=== PATIENT | female | born 2000 | race Two or more races ===

== ENCOUNTER 2024-10-31 21:59 | Emergency (ER) | payer OTHER ==
[2024-10-31 22:24] VITALS: RESP 18; BMI 25.8
[2024-10-31] MEDS ORDERED: ACETAMINOPHEN 325 MG TABLET (FP) ONE (23:29)
[2024-10-31] MEDS ORDERED: MAG HYDROX/AL HYDROX/SIMETH 30 ML UNIT-DOSE CUP ONE (23:30)
[2024-10-31] MEDS: ACETAMINOPHEN 325 MG TABLET (FP) PO ONE (23:38)
[2024-10-31] MEDS: MAG HYDROX/AL HYDROX/SIMETH 30 ML UNIT-DOSE CUP PO ONE (23:38)
[2024-11-01 00:05] LABS: EPI CELLS 22 /uL (0-25.1); HYALINE CASTS 0 /uL (0-3.1); URINE APPEARANCE CLEAR; URINE BACTERIA 408 /uL (0-1359); URINE BILIRUBIN NEGATIVE (NEGATIVE); URINE COLOR YELLOW; URINE GLUCOSE (UA) NEGATIVE (NEGATIVE); URINE KETONE NEGATIVE (NEGATIVE); URINE LEUK ESTERASE 1+ (NEGATIVE); URINE NITRITE NEGATIVE (NEGATIVE); URINE PROTEIN NEGATIVE (NEGATIVE); URINE RBC 6 /uL (0-23.9); URINE UROBILINOGEN 0.2 mg/dL (0.2-1.0); URINE WBC 32 /uL (0-25.8)
[2024-11-01] MEDS ORDERED: AMOX TR/POT CLAV 875MG/125MG TABLETS (FP) ONE (00:48)
[2024-11-01 00:49] LABS: EOSINOPHIL % 0.5 % (0.7-5.8); EOSINOPHILS # 0.04 x10^3/uL (0.04-0.36); RDW 14.0 % (12.1-16.5)
[2024-11-01 00:50] LABS: ABSOLUTE IMMATURE GRANULOCYTES 0.02 x10^3/uL (0.0-0.031); BASOPHILS # 0.04 x10^3/uL (0.01-0.08); IMMATURE PLATELET FRACTION # 9.20 x10^3/uL; MCHC 32.5 g/dl (32.2-35.5); MEAN CELL VOLUME 82.8 fl (79.4-94.8); MEAN PLT VOLUME 9.9 fl (9.4-12.3); MONOCYTE # 0.71 x10^3/uL (0.24-0.86); MONOCYTE % 8.4 % (4.7-12.5)
[2024-11-01] MEDS: AMOX TR/POT CLAV 875MG/125MG TABLETS (FP) PO ONE (00:54)
[2024-11-01] MEDS: PYRIDOXINE HCL (B-6) 50 MG TABLET (FP) PO ONE (00:54)
[2024-11-01 01:13] LABS: GLUCOSE,RANDOM 76.0 mg/dL (74-106); TOT PROT 6.4 g/dl (6.4-8.2)
[2024-11-01 01:14] LABS: CO2 23.0 mmol/L (21-32)
[2024-11-01 01:16] LABS: ALK PHOS 86.0 U/L (40-150)
[2024-11-01 01:18] LABS: SGOT/AST 18.0 U/L (5-34); SGPT/ALT 13.0 U/L (0-55)
[2024-11-01 01:19] LABS: CREATININE 0.54 mg/dL (0.55-1.3)
[2024-11-01 01:20] VITALS: BP 105/54; PULSE 73; TEMP 98.7
[2024-11-01 01:38] LABS: HCV DIAGNOSTIC IN-HOUSE W/RFLX NON-REACTIVE (NONREACTIVE); HIV INTERPRETATION NEGATIVE (NEGATIVE)
== END 2024-11-01 01:59 | disposition home or self-care (01) ==
LOC: JER 21:59
DX: O26.891 Other specified pregnancy related conditions, first trimester (principal); R10.13 Epigastric pain; O21.9 Vomiting of pregnancy, unspecified; O99.891 Other specified diseases and conditions complicating pregnancy; R50.9 Fever, unspecified; R30.0 Dysuria; Z3A.08 8 weeks gestation of pregnancy
CPT/HCPCS: 36415; 76705-TC; 76815; 80053; 81003; 83690; 83735; 84702; 85025; 86803; 87086; 87389; 99284-25